=== PATIENT | female | born 1965 | race Caucasian/White ===

== ENCOUNTER 2018-08-09 20:54 | Emergency (ER) | payer BC ==
[~2018-08-09] VITALS: Ht 167.6 cm; Wt 95.3 kg
[2018-08-09] MEDS ORDERED: TDAP DIPH,PERTUSS,TET VAC/PF 0.5 ML DISP.SYRIN IM ONE ×2 (21:15→21:19)
[2018-08-09] MEDS ORDERED: HYDROCODONE/APAP 5-325MG TABLET PO ONE (21:30)
[2018-08-09] MEDS ORDERED: HYDROCODONE/APAP 5-325MG TABLET ONE (21:31)
--- NOTE | 2018-08-09 21:44 | NUR ---
Patient discharged to home in stable conditon. Written and verbal after care instructions given. Patient verbalizes understanding of instructions. Ambulated from ER with stable gait. All belongings with patient. VSS
--- NOTE | 2018-08-09 21:44 | NUR ---
patient is AAOx4. Speaking in complete sentences. Speech is clear. patient has c/o R foot injury with laceration s/p having a clock fall on it. patient states there was a sharp end on the clock which punctured an area >1in in length to her anterior R foot. She is able to ambulate with stable gait and no obvious deformity to the extremity. No active bleeding noted at this time.
[2018-08-09 21:45] VITALS: BP 121/80
== END 2018-08-09 21:46 | disposition home or self-care (01) ==
LOC: ER 20:57
DX: S91.311A Laceration without foreign body, right foot, initial encounter (principal); I10 Essential (primary) hypertension; E11.9 Type 2 diabetes mellitus without complications; Z90.49 Acquired absence of other specified parts of digestive tract; Z91.030 Bee allergy status; W20.8XXA Other cause of strike by thrown, projected or falling object, initial encounter; Y93.89 Activity, other specified; Y92.89 Other specified places as the place of occurrence of the external cause; Y99.8 Other external cause status
CPT/HCPCS: 90715; A4663